=== PATIENT | female | born 1955 | race Caucasian/White ===

== ENCOUNTER 2020-07-14 04:20 | Emergency (ER) | payer OTHER, MEDICAID ==
[~2020-07-14] VITALS: Ht 167.6 cm; Wt 113.4 kg
[2020-07-14 05:20] VITALS: BP 126/58
--- NOTE | 2020-07-14 05:30 | NUR ---
TO BED 3 VIA BLS WITH C/O ALTERED LABS. PT IS WITH ESRD AND HAS MISSED LAST 2 CYCLES OF HD
[2020-07-14 07:32] LABS: BASOPHILS # (AUTO) 0.1 K/uL (0.00-0.22); BASOPHILS % (AUTO) 1.3 % (0.0-2.0); EOSINOPHILS # (AUTO) 0.1 K/uL (0-0.4); EOSINOPHILS % (AUTO) 1.8 % (0.0-4.0); HEMOGLOBIN 8.5 g/dL (12.0-16.0); LYMPHOCYTES # (AUTO) 2.2 K/uL (2.5-16.5); LYMPHOCYTES % (AUTO) 28.5 % (20.5-51.1); MEAN CORPUSCULAR HEMOGLOBIN 30 pg (27-31); MEAN CORPUSCULAR HGB CONC 33 g/dL (33-37); MEAN CORPUSCULAR VOLUME 93.1 fL (80-94); MONOCYTES # (AUTO) 0.6 K/uL (0.8-1.0); MONOCYTES % (AUTO) 7.5 % (1.7-9.3); NEUTROPHILS # (AUTO) 4.6 K/uL (1.8-7.7); NEUTROPHILS % (AUTO) 60.9 % (42.2-75.2); PLATELET COUNT (AUTO) 60 K/uL (140-450); RED BLOOD CELL COUNT(AUTO) 2.79 MIL/uL (4.20-5.40); RED CELL DISTRIBUTION WIDTH 17.3 % (11.6-13.7); WHITE BLOOD COUNT (AUTO) 7.6 K/uL (4.8-10.8)
[2020-07-14 07:45] LABS: ALBUMIN 1.5 g/dL (3.4-5.0); ANION GAP 11.2 (8-16); CARBON DIOXIDE 27.4 mmol/L (21-32); POTASSIUM 3.6 mmol/L (3.5-5.1); TOTAL BILIRUBIN 0.7 mg/dL (0.0-1.0)
[2020-07-14 08:17] LABS: CREATININE 6.7 mg/dL (0.6-1.3)
--- NOTE | 2020-07-14 09:09 | NUR ---
Patient transferred to [facility].
--- NOTE | 2020-07-14 16:02 | NUR ---
REPORT CALLED TO PATRICIA AT [facility]. ALL QUESTIONS ANSWERED. PT WILL RETURN TO [facility].
[2020-07-14 16:12] VITALS: BP 121/60
--- NOTE | 2020-07-14 16:14 | NUR ---
Patient discharged with v/s stable. Written and verbal after care instructions given and explained. Patient verbalized understanding. Taken back to facility by [facility] . All questions addressed prior to discharge. Advised to follow up with PMD.
== END 2020-07-14 16:14 ==
LOC: MED 04:20
DX: U07.1 COVID-19 (principal); N18.6 End stage renal disease; Z99.2 Dependence on renal dialysis; Z88.1 Allergy status to other antibiotic agents; Z88.8 Allergy status to other drugs, medicaments and biological substances
CPT/HCPCS: 36415; 80053; 85025; 99283